=== PATIENT | female | born 1945 | race Caucasian/White ===

== ENCOUNTER 2016-07-30 21:17 | Emergency (ER) | payer MEDICARE, OTHER ==
--- NOTE | 2016-07-31 03:36 | ER ---
ADMIT: 07/30/2016 RM/LOC: [facility] MR#: [id number] [id number] [place] [address] Emergency Room Report SEX: F AGE: 70 : 1945 DATE: 07/30/2016 The patient is a 70-year-old female, 30-minute history of brisk rectal bleeding associated with hemorrhoids. Patient has been under considerable stress getting her disabled, chronically ill ready for [employer] tomorrow. She states that she has been troubled by constipation and gastric upset. 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 Denies any melanotic stools. Exam remarkable for nontoxic, afebrile, comfortable-appearing female. No acute distress. Abdomen benign. EKG showed sinus rhythm with low voltage; QTc of 490 mcs; no prior EKG. Normal chest x-ray. Normal hemoglobin, WBC, lactic acid, CRP, and chemistries except for potassium at 3.6. Normal lipase and D-dimer. Patient had no orthostatic blood pressure findings. Non-thrombosed external hemorrhoid with bright red blood, but otherwise nontender. Recommended restarting her AcipHex, which she has not been using. Consider using her alprazolam for the stress of the trip. Follow up Dr. Becerra or Yary Ryan upon return from [employer] and [id number] hemorrhoid medications. Álvaro Castrejon MD/ rebecca JOB #: [id number] CC: Álvaro Castrejon MD, Attending Physician Yary Garcia PA-C, Family Physician CARIDAD Chase MD
== END 2016-07-30 22:57 | disposition home or self-care (01) ==
LOC: ER 21:17
DX: K62.5 Hemorrhage of anus and rectum (principal); K64.9 Unspecified hemorrhoids; K29.70 Gastritis, unspecified, without bleeding; I10 Essential (primary) hypertension; Z88.1 Allergy status to other antibiotic agents; Z98.890 Other specified postprocedural states; Z79.899 Other long term (current) drug therapy

== ENCOUNTER → 2016-09-03 | Outpatient (CLI) | payer MEDICARE, OTHER | END | disposition home or self-care (01) | LOC: RAD.S 09:59 | DX: R10.9 Unspecified abdominal pain (principal); K57.30 Diverticulosis of large intestine without perforation or abscess without bleeding; Z87.19 Personal history of other diseases of the digestive system ==

== ENCOUNTER → 2016-09-26 | Outpatient (CLI) | payer MEDICARE, OTHER | END | disposition home or self-care (01) | LOC: RAD.S 12:50 | DX: Z12.31 Encounter for screening mammogram for malignant neoplasm of breast (principal); Z85.3 Personal history of malignant neoplasm of breast ==